=== PATIENT | female | born 1970 | race Two or more races ===

== ENCOUNTER 2024-04-15 07:33 | Emergency (ER) | payer OTHER ==
[~2024-04-15] VITALS: Ht 162.6 cm; Wt 63.5 kg
[2024-04-15 07:46] VITALS: BP 140/110; TEMP 98.6; O2SAT 100
== END 2024-04-15 08:20 | disposition home or self-care (01) ==
LOC: ER 07:47
DX: J11.1 Influenza due to unidentified influenza virus with other respiratory manifestations (principal)